=== PATIENT | male | born 1985 | race Caucasian/White ===

== ENCOUNTER 2017-03-01 14:51 | Outpatient (CLI) | payer MEDICAID ==
[~2017-03-01 14:51] MED LIST: IBUP-1986 PO
[2017-03-01 14:57] VITALS: BP 130/82
== END 2017-03-01 15:50 | disposition home or self-care (01) ==
LOC: ORTHO 14:51
PROVIDERS: ATTEND Nurse Practitioner Family
DX: S82.832G Other fracture of upper and lower end of left fibula, subsequent encounter for closed fracture with delayed healing (principal); X58.XXXD Exposure to other specified factors, subsequent encounter; Y93.54 Activity, bowling
CPT/HCPCS: 73610

== ENCOUNTER 2017-04-12 14:45 | Outpatient (CLI) | payer MEDICAID ==
[2017-04-12 14:53] VITALS: BP 137/90
== END 2017-04-12 15:35 | disposition home or self-care (01) ==
LOC: ORTHO 14:45
PROVIDERS: ATTEND Nurse Practitioner Family
DX: S82.832G Other fracture of upper and lower end of left fibula, subsequent encounter for closed fracture with delayed healing (principal); X58.XXXD Exposure to other specified factors, subsequent encounter; Y93.54 Activity, bowling; Y93.66 Activity, soccer
CPT/HCPCS: 73610; 99212

== ENCOUNTER 2017-06-18 14:13 | Outpatient (CLI) | payer MEDICAID ==
[2017-06-18 14:18] VITALS: BP 139/68
== END 2017-06-18 14:50 | disposition home or self-care (01) ==
LOC: ORTHO 14:13
PROVIDERS: ATTEND Nurse Practitioner Family
DX: S82.832G Other fracture of upper and lower end of left fibula, subsequent encounter for closed fracture with delayed healing (principal); X58.XXXD Exposure to other specified factors, subsequent encounter
CPT/HCPCS: 73610; 99213

== ENCOUNTER 2017-07-31 14:26 | Outpatient (CLI) | payer MEDICAID ==
[2017-07-31 14:37] VITALS: BP 129/73
== END 2017-07-31 15:05 | disposition home or self-care (01) ==
LOC: ORTHO 14:26
PROVIDERS: ATTEND Nurse Practitioner Family
DX: S82.832G Other fracture of upper and lower end of left fibula, subsequent encounter for closed fracture with delayed healing (principal); F12.90 Cannabis use, unspecified, uncomplicated; M25.472 Effusion, left ankle; X58.XXXD Exposure to other specified factors, subsequent encounter
CPT/HCPCS: 73610; 99213

== ENCOUNTER 2017-08-05 20:43 | Emergency (ER) | payer MEDICAID ==
[~2017-08-05] VITALS: Ht 188 cm; Wt 107.5 kg
[2017-08-05] MEDS ORDERED: CLIN300C85 PO (22:10)
[2017-08-05 22:19] VITALS: BP 148/106
== END 2017-08-05 22:25 | disposition home or self-care (01) ==
LOC: ER 20:44
DX: H00.034 Abscess of left upper eyelid (principal); F12.90 Cannabis use, unspecified, uncomplicated; Z79.899 Other long term (current) drug therapy
CPT/HCPCS: 99283

== ENCOUNTER 2017-10-01 04:52 | Emergency (ER) | payer MEDICAID ==
[~2017-10-01] VITALS: Ht 188 cm; Wt 113.4 kg
[~2017-10-01 04:52] MED LIST changes: +CLIN300C85 PO
[2017-10-01 05:12] VITALS: BP 141/91
[2017-10-01] MEDS ORDERED: HYDR-565 PO (05:23)
[2017-10-01] MEDS ORDERED: IBUP-1986 PO (05:23)
[2017-10-01] MEDS ORDERED: AMOX500C2 PO (05:23)
[2017-10-01] MEDS ORDERED: amoxicillin 250mg capsule PO ONE (05:25)
[2017-10-01] MEDS ORDERED: HYDROcodone/acetaminophen 10/325mg tab PO ONE (05:25)
[2017-10-02] MEDS ORDERED: TOBR5DRO2 RIGHTEYE (16:33)
== END 2017-10-01 05:32 | disposition home or self-care (01) ==
LOC: ER 04:53
DX: K08.89 Other specified disorders of teeth and supporting structures (principal); F12.90 Cannabis use, unspecified, uncomplicated
CPT/HCPCS: 99283

== ENCOUNTER 2017-10-04 03:56 | Emergency (ER) | payer MEDICAID ==
[~2017-10-04] VITALS: Ht 188 cm; Wt 107.0 kg
[~2017-10-04 03:56] MED LIST changes: +AMOX500C2 PO; +HYDR-565 PO; +TOBR5DRO2 RIGHTEYE
[2017-10-04] MEDS ORDERED: HYDROcodone/acetaminophen 10/325mg tab PO ONE (04:15)
[2017-10-04 04:35] VITALS: BP 151/95
== END 2017-10-04 04:36 | disposition home or self-care (01) ==
LOC: ER 03:56
DX: K08.89 Other specified disorders of teeth and supporting structures (principal); F12.90 Cannabis use, unspecified, uncomplicated; Z79.899 Other long term (current) drug therapy
CPT/HCPCS: 99283

== ENCOUNTER 2017-10-09 13:06 | Outpatient (CLI) | payer MEDICAID ==
[2017-10-09 13:05] VITALS: BP 140/91
== END 2017-10-09 13:43 | disposition home or self-care (01) ==
LOC: ORTHO 13:06
PROVIDERS: ATTEND Nurse Practitioner Family
DX: S82.832D Other fracture of upper and lower end of left fibula, subsequent encounter for closed fracture with routine healing (principal); F12.90 Cannabis use, unspecified, uncomplicated; X58.XXXD Exposure to other specified factors, subsequent encounter
CPT/HCPCS: 73610; 99213

== ENCOUNTER 2018-01-10 21:29 | Emergency (ER) | payer MEDICAID ==
[~2018-01-10] VITALS: Ht 188 cm; Wt 114.0 kg
[~2018-01-10 21:29] MED LIST changes: -AMOX500C2 PO; +CEPH500C5 PO; -HYDR-565 PO; +IBUP-1984 PO; +SULF1TAB49 PO
[2018-01-11] MEDS ORDERED: LIDOcaine 1.5% w/epinephrine 1:200,000 5ml ampul IJ ONE (01:45)
[2018-01-11] MEDS ORDERED: sulfamethoxazole/trimethoprim DS (800/160mg) tablet PO ONE (01:45)
[2018-01-11] MEDS ORDERED: TETanus/Pertussis (Acell)/Diphther VAC/PF (Tdap-Adult) 0.5ml syringe IM ONE (01:45)
[2018-01-11] MEDS ORDERED: HYDROcodone/acetaminophen 10/325mg tab PO ONE (01:45)
[2018-01-11] MEDS ORDERED: HYDR-4383 PO (02:16)
[2018-01-11] MEDS ORDERED: SULF1TAB48 PO (02:16)
[2018-01-11] MEDS ORDERED: LIDOcaine 1% w/EPI 1:100,000 30ml vial (MDV) IJ ONE (02:45)
[2018-01-11 02:46] VITALS: BP 138/92
== END 2018-01-11 03:12 | disposition home or self-care (01) ==
LOC: ER 21:30
DX: L02.415 Cutaneous abscess of right lower limb (principal); F17.200 Nicotine dependence, unspecified, uncomplicated; Z79.2 Long term (current) use of antibiotics; Z79.899 Other long term (current) drug therapy
CPT/HCPCS: 10060; 90471; 90715; 99283; J3490

== ENCOUNTER 2021-08-16 11:24 | Emergency (ER) | payer MEDICAID ==
[~2021-08-16] VITALS: Ht 188 cm; Wt 118.2 kg
[~2021-08-16 11:24] MED LIST changes: -CEPH500C5 PO; +CLIN-97 PO; -CLIN300C85 PO; +HYDR-4383 PO; -IBUP-1984 PO; -SULF1TAB49 PO
[2021-08-16 12:01] LABS: BASOPHILS # (AUTO) 0.1 X10'3 (0-0.2); BASOPHILS % (AUTO) 0.7 % (0-1); EOSINOPHILS # (AUTO) 0.3 X10'3 (0-0.9); EOSINOPHILS % (AUTO) 3.5 % (0-6); HEMATOCRIT 48.4 % (42.0-52.0); HEMOGLOBIN 16.5 g/dl (14.0-17.9); LYMPHOCYTES # (AUTO) 2.8 X10'3 (1.1-4.8); LYMPHOCYTES % (AUTO) 30.8 % (21-51); MEAN CORPUSCULAR HEMOGLOBIN 27.6 PG (27.0-31.0); MEAN CORPUSCULAR HGB CONC 34.1 g/dL (33.0-36.5); MONOCYTES # (AUTO) 0.8 X10'3 (0-0.9); MONOCYTES % (AUTO) 8.8 % (2-12); NEUTROPHILS % (AUTO) 56.2 % (42-75); PLATELET COUNT 260 X10'3 (140-440); RED BLOOD COUNT 5.98 X10'6 (4.70-6.10); RED CELL DISTRIBUTION WIDTH 13.6 % (11.5-14.5)
[2021-08-16 12:14] LABS: ALANINE AMINOTRANSFERASE 30 U/L (12-78); ALBUMIN 4.1 G/DL (3.4-5.0); ALKALINE PHOSPHATASE 81 IU/L (46-116); ANION GAP 9 (8-16); ASPARTATE AMINO TRANSFERASE 20 U/L (10-37); BILIRUBIN,TOTAL 0.8 MG/DL (0.1-1.0); BLOOD UREA NITROGEN 10 MG/DL (7-18); BUN/CREATININE RATIO 9.8 (5.4-32.0); CALCIUM 9.3 MG/DL (8.5-10.1); CHLORIDE 107 MMOL/L (99-107); CREATININE 1.02 MG/DL (0.60-1.10); GLUCOSE 88 MG/DL (70-104); POTASSIUM 3.6 MMOL/L (3.5-5.1); SODIUM 143 MMOL/L (135-145); TOTAL CARBON DIOXIDE 27.2 MMOL/L (24-32); TOTAL PROTEIN 8.3 G/DL (6.4-8.2); eGFR 84 ML/MIN
[2021-08-16 14:52] VITALS: BP 150/77
== END 2021-08-16 15:07 | disposition home or self-care (01) ==
LOC: ER 11:24
DX: R07.89 Other chest pain (principal); R05.9 Cough, unspecified; Z72.89 Other problems related to lifestyle; Z79.2 Long term (current) use of antibiotics; Z79.899 Other long term (current) drug therapy
CPT/HCPCS: 36415; 71045; 80053; 83880; 84484; 85025; 93005; 99285

== ENCOUNTER 2021-11-24 21:25 | Emergency (ER) | payer MEDICAID ==
[~2021-11-24] VITALS: Ht 188 cm; Wt 124.0 kg
[2021-11-24 21:30] VITALS: BP 150/102
[2021-11-24 21:51] LABS: CLARITY,URINE CLOUDY (Clear); COLOR,URINE YELLOW (Yellow); GLUCOSE, URINE NEGATIVE (Neg); KETONES,URINE NEGATIVE (Neg); LEUKOCYTE ESTERASE ,URINE TRACE (Neg); NITRITES, URINE NEGATIVE (Neg); OCCULT BLOOD,URINE NEGATIVE (Neg); PROTEIN,URINE TRACE mg/dl (Neg); UROBILINOGEN,URINE 0.2 E.U/dL (0.2-1.0)
[2021-11-24 21:53] LABS: BASOPHILS % (AUTO) 0.4 % (0-1); EOSINOPHILS # (AUTO) 0.2 X10'3 (0-0.9); EOSINOPHILS % (AUTO) 1.8 % (0-6); HEMATOCRIT 46.3 % (42.0-52.0); HEMOGLOBIN 16.2 g/dl (14.0-17.9); LYMPHOCYTES # (AUTO) 2.1 X10'3 (1.1-4.8); LYMPHOCYTES % (AUTO) 21.6 % (21-51); MEAN CORPUSCULAR HEMOGLOBIN 28.3 PG (27.0-31.0); MEAN CORPUSCULAR HGB CONC 34.9 g/dL (33.0-36.5); MEAN PLATELET VOLUME 8.1 FL (7.4-10.4); MONOCYTES # (AUTO) 0.5 X10'3 (0-0.9); MONOCYTES % (AUTO) 5.2 % (2-12); NEUTROPHILS # (AUTO) 6.9 X10'3 (1.8-7.7); PLATELET COUNT 240 X10'3 (140-440); RED BLOOD COUNT 5.72 X10'6 (4.70-6.10); RED CELL DISTRIBUTION WIDTH 13.2 % (11.5-14.5); WHITE BLOOD COUNT 9.8 X10'3 (4.5-11.0)
[2021-11-24 21:56] LABS: UA COLLECTION TYPE CLN CATCH MIDSTREAM
[2021-11-24 21:57] LABS: MUCUS STRANDS MANY /LPF (Neg); SQUAMOUS EPITHELIAL CELL,UR FEW /LPF (FEW)
[2021-11-24 21:58] LABS: WBC,URINE 50-100 /HPF (0-4)
[2021-11-24 21:59] LABS: AMORPHOUS PHOSPHATES 2+; BACTERIA,URINE FEW /HPF (Neg)
[2021-11-24 22:00] LABS: TRANSITIONAL EPI CELLS,URINE FEW /HPF; WBC CLUMPS,URINE MODERATE /HPF (NEGATIVE)
[2021-11-24 22:06] LABS: ALANINE AMINOTRANSFERASE 37 U/L (12-78); ALBUMIN 4.2 G/DL (3.4-5.0); ALBUMIN/GLOBULIN RATIO 1.1 (1.1-1.5); ALKALINE PHOSPHATASE 86 IU/L (46-116); ANION GAP 8 (8-16); ASPARTATE AMINO TRANSFERASE 24 U/L (10-37); BILIRUBIN,TOTAL 0.5 MG/DL (0.1-1.0); BLOOD UREA NITROGEN 15 MG/DL (7-18); CALCIUM 9.2 MG/DL (8.5-10.1); CHLORIDE 106 MMOL/L (99-107); GLUCOSE 117 MG/DL (70-104); LIPASE 100 U/L (73-393); POTASSIUM 3.7 MMOL/L (3.5-5.1); SODIUM 143 MMOL/L (135-145); TOTAL CARBON DIOXIDE 29.5 MMOL/L (24-32); TOTAL PROTEIN 8.2 G/DL (6.4-8.2); eGFR 86 ML/MIN
[2021-11-24] MEDS ORDERED: ondansetron/PF 4mg/2ml inj IV ONE (23:40)
[2021-11-24] MEDS ORDERED: normal saline 1000ml 1,000 ML IV ONE (23:40)
[2021-11-24] MEDS ORDERED: ONDA4TAB12 PO (23:44)
== END 2021-11-25 06:42 | disposition home or self-care (01) ==
LOC: ER 21:26
DX: K29.00 Acute gastritis without bleeding (principal); R11.10 Vomiting, unspecified; R10.84 Generalized abdominal pain; Z86.69 Personal history of other diseases of the nervous system and sense organs; Z79.2 Long term (current) use of antibiotics; Z79.899 Other long term (current) drug therapy
CPT/HCPCS: 36415; 80053; 81001; 83690; 85025; 87088; 96361; 96374; 99283; J2405; J7030

== ENCOUNTER 2023-06-25 21:23 | Emergency (ER) | payer MEDICAID ==
[~2023-06-25] VITALS: Ht 188 cm; Wt 128.7 kg
[~2023-06-25 21:23] MED LIST changes: +ONDA4TAB12 PO
[2023-06-25 22:02] LABS: BILIRUBIN,URINE NEGATIVE (Neg); CLARITY,URINE CLEAR (Clear); COLOR,URINE YELLOW (Yellow); GLUCOSE, URINE NEGATIVE (Neg); KETONES,URINE NEGATIVE (Neg); LEUKOCYTE ESTERASE ,URINE NEGATIVE (Neg); NITRITES, URINE NEGATIVE (Neg); OCCULT BLOOD,URINE NEGATIVE (Neg); PROTEIN,URINE NEGATIVE (Neg); UA COLLECTION TYPE CLN CATCH MIDSTREAM; UROBILINOGEN,URINE 0.2 E.U/dL (0.2-1.0)
[2023-06-25 23:14] LABS: BASOPHILS # (AUTO) 0.2 X10'3 (0-0.2); BASOPHILS % (AUTO) 1.5 % (0-1); EOSINOPHILS # (AUTO) 0.5 X10'3 (0-0.9); EOSINOPHILS % (AUTO) 3.2 % (0-6); HEMATOCRIT 52.8 % (42.0-52.0); LYMPHOCYTES # (AUTO) 3.6 X10'3 (1.1-4.8); LYMPHOCYTES % (AUTO) 23.2 % (21-51); MEAN CORPUSCULAR HEMOGLOBIN 28.1 PG (27.0-31.0); MEAN CORPUSCULAR VOLUME 82.5 FL (78-98); MONOCYTES # (AUTO) 1.2 X10'3 (0-0.9); MONOCYTES % (AUTO) 7.8 % (2-12); NEUTROPHILS % (AUTO) 64.3 % (42-75); PLATELET COUNT 267 X10'3 (140-440); RED CELL DISTRIBUTION WIDTH 13.6 % (11.5-14.5); WHITE BLOOD COUNT 15.6 X10'3 (4.5-11.0)
[2023-06-25 23:24] LABS: ALANINE AMINOTRANSFERASE 35 U/L (12-78); ALKALINE PHOSPHATASE 90 IU/L (46-116); ANION GAP 8 (8-16); ASPARTATE AMINO TRANSFERASE 16 U/L (10-37); BILIRUBIN,TOTAL 0.7 MG/DL (0.1-1.0); BLOOD UREA NITROGEN 9 MG/DL (7-18); BUN/CREATININE RATIO 7.9 (10.0-20.0); CALCIUM 8.9 MG/DL (8.5-10.1); CHLORIDE 101 MMOL/L (99-107); CREATININE 1.14 MG/DL (0.60-1.10); GLUCOSE 93 MG/DL (70-104); LIPASE 29 U/L (16-77); POTASSIUM 3.3 MMOL/L (3.5-5.1); SODIUM 141 MMOL/L (135-145); TOTAL PROTEIN 8.2 G/DL (6.4-8.2); eCRCL 104 ML/MIN; eGFR 73 ML/MIN
[2023-06-26 00:04] LABS: TOTAL CELLS COUNTED 100
[2023-06-26 00:05] LABS: PLATELET ESTIMATE NORMAL
[2023-06-26] MEDS: normal saline 1000ML IV soln IVB ONE (00:21)
[2023-06-26] MEDS: morphine 4 MG/ML inj SYRINge IV ONE (00:21)
[2023-06-26] MEDS: ondansetron/PF 4mg/2ml inj IV ONE (00:21)
[2023-06-26] MEDS: amLODIPine 5mg tablet PO ONE (01:09)
[2023-06-26] MEDS ORDERED: HYDR-3965 PO (01:16)
[2023-06-26] MEDS ORDERED: AMOX-419 PO (01:16)
[2023-06-26] MEDS ORDERED: ONDA8TAB13 PO (01:16)
[2023-06-26] MEDS: amox tr/potassium clavulanate 875/125mg TAB PO ONE (01:33)
[2023-06-26] MEDS: HYDROcodone/acetaminophen 5mg/325mg tablet PO ONE (01:34)
[2023-06-26] MEDS: ketorolac tromethamine 15mg/ml inj. IV ONE (01:35)
[2023-06-26 02:07] VITALS: BP 137/93; PULSE 82; RESP 16; TEMP 98.1; O2SAT 96
== END 2023-06-26 02:13 | disposition home or self-care (01) ==
LOC: ER 21:24
DX: R10.9 Unspecified abdominal pain (principal); R11.10 Vomiting, unspecified
CPT/HCPCS: 36415; 74176; 80053; 81003; 83690; 84145; 85007; 85025; 96361; 96374; 96375; 99285; J1885; J2270; J2405; J7030

== ENCOUNTER → 2023-07-30 | Outpatient (CLI) | payer MEDICAID ==
[~2023-07-30] MED LIST changes: +ONDA8TAB13 PO
== END | disposition home or self-care (01) ==
LOC: RAD 11:31
PROVIDERS: ATTEND Family Medicine
DX: M54.50 Low back pain, unspecified (principal)
CPT/HCPCS: 72110

== ENCOUNTER 2024-06-04 15:22 | Outpatient (CLI) | payer MEDICAID ==
[~2024-06-04 15:22] MED LIST changes: +ONDA-243 PO; +ONDA-245 PO; -ONDA4TAB12 PO; -ONDA8TAB13 PO
== END 2024-06-04 23:59 | disposition home or self-care (01) ==
LOC: RAD 15:22
PROVIDERS: ATTEND Podiatrist Foot & Ankle Surgery
DX: M25.472 Effusion, left ankle (principal); M77.52 Other enthesopathy of left foot and ankle
CPT/HCPCS: 73700